=== PATIENT | male | born 1960 | race Caucasian/White ===

== ENCOUNTER → 2023-04-10 | Outpatient (CLI) | payer MEDICAID, SELFPAY ==
--- NOTE | 2023-04-10 | FLU_PTH ---
PATIENT: BULMARO HOYT LOC: [facility] U#:[id number] AGE/SX: 62/M ROOM: RE04/10/[address]: Dr. Arian Dorantes MD : 1960 BED: DIS: 04/10/2023 SPEC #: [id number] RECD: 04/10/23 13:09 STATUS: ELEN JESÚS #: [id number] ANGELIQUE: 04/10/23 00:[address]: Arian Dorantes DEPT: CYTOLOGY RECD BY: Mina Michael ENTERED: 04/10/23 13:10 SP TYPE: Fluid OTHR DR: Dr. Patricio Santana MD Tissues: A - Thyroid gland, NOS B - Thyroid gland, NOS Procedures: Special Stain Group II Surgery Specimen Level IV Cytospin Fluid HEADER OPERATION: Fine needle aspiration left enlarged cervical lymph nodes PRE-OP DIAGNOSIS: Abnormal ultrasound TISSUE SUBMITTED: A - FNA left enlarged cervical lymph nodes fluid, B - FNA left enlarged cervical lymph nodes x12 slides DIAGNOSIS CYTOLOGY A. Left enlarged cervical lymph node fluid, fine needle aspiration (cytospin and cell block): Negative for malignant cells. See comment. B. Left enlarged cervical lymph node, fine needle aspiration (smears): Negative for malignant cells. See comment. SJ:rg 04/11/2023 COMMENT A. The specimen entirely consists of blood. B. The specimen predominantly consists of lymphocytes. If there is a high suspicion of lymphoma, incisional or excisional biopsy including flow cytometry study is suggested if clinically indicated. Correlation with clinical, radiologic findings and appropriate follow up are necessary. CYTOLOGY STUDY Slides are reviewed. CYTOLOGY GROSS A - Received is 30 ml of light vigil cloudy fluid labeled with the patient's name and and designated per the requisition as left enlarged cervical lymph nodes. Submitted for cytology preparation including cell block. B - Received are 12 smears labeled with the patient's name and designated per the requisition as left enlarged cervical lymph nodes. Submitted for staining. / [email or web address] 04/10/2023 TC:5 CPT: 06953 x2, [id number]
== END | disposition home or self-care (01) ==
PROVIDERS: PCP Internal Medicine; Visit Provider Surgery
DX: R93.89 Abnormal findings on diagnostic imaging of other specified body structures (principal)
CPT/HCPCS: 88108; 88305; 88313

== ENCOUNTER 2023-07-18 10:47 | Emergency (ER) | payer MEDICAID, SELFPAY ==
[2023-07-18 10:48] VITALS: BP 122/94; PULSE 101; RESP 16; TEMP 36.2; O2SAT 100; BMI 27.8
--- NOTE | 2023-07-18 11:05 | CT_ITS ---
STUDY: CT ABDOMEN AND PELVIS WITH CONTRAST REASON FOR EXAM: Male, 62 years old. Abd pain. Constipation since July 13, 2023. History of T-cell lymphoma. RADIATION DOSAGE (If Supplied By Facility): CTDIvol = ( 14.12 ) mGy, DLP = ( 1083.89 ) mGycm TECHNIQUE: Transaxial images were obtained from the dome of the diaphragm to the symphysis pubis with oral contrast. Oral and amp; IV Gastrografin and amp; 100mL Isovue-300 was administered. Sagittal and coronal images were reconstructed. Individualized dose optimization techniques were used for this CT. COMPARISON: Comparison is made with prior study dated September 15, 2013. FINDINGS: Stable increased markings at the lung bases with areas of confluence suggestive of either scarring and/or bibasilar atelectasis. The visualized portions of the heart are within normal limits. There is decreased attenuation of the liver consistent with steatosis. Normal gallbladder and extrahepatic biliary system. Normal spleen. Normal pancreas. Normal bilateral adrenal glands. Normal right kidney. Normal left kidney. Normal visualized stomach. Normal small intestine. There are scattered colonic diverticula consistent with diverticulosis. Large amount of fecal material is seen in the right hemicolon. The appendix is visualized and appears normal. Normal abdominal aorta. Normal inferior vena cava. There is borderline retroperitoneal lymphadenopathy with enlarged nodes no greater than 10mm in the short axis diameter. Diffuse urinary bladder wall thickening. There is a 3.3 cm x 4.9 cm cystic-like structure along the right side of the urinary bladder along the right pelvic sidewall. This may represent either a bladder diverticulum or possible lymphocele. This was not seen on prior study. The side Small bilateral inguinal hernias containing fat. Small umbilical hernia containing fat. There are mild degenerative changes of the visualized lumbar spine. CT/Abdomen/Pelvis WITH Contrast IMPRESSION: Stable increased markings at the lung bases. Large amount of fecal material is seen in the right hemicolon. Diffuse fatty infiltration of the liver. Small bilateral inguinal hernias containing fat. Diffuse bladder wall thickening. Cystic structure in the right hemipelvis which may represent either a right-sided bladder diverticulum or small lymphocele. Electronically Signed: Zac Garcia MD at 13:34 EDT ,
--- NOTE | 2023-07-18 11:06 | EX.ED.DYSGE1 ---
HPI History of Present Illness Chief Complaint: Constipation Detail of Chief Complaint: Abdominal distention, constipation Informant: patient Narrative Narrative: Patient present secondary to abdominal distention and constipation. Patient was admitted to [facility] recently after starting chemotherapy and developing a fever. He states he was having diarrhea and he was diagnosed with colitis. He was discharged on July 13. He states since discharge she has not had a bowel movement and is not passing gas. He feels that he is getting abdominal distention. [facility] Medical History (Updated 07/18/23 @ 14:[address] Erna Horn MD) Hypertension T-cell lymphoma Home Medications hydrocodone-acetaminophen 5-325mg 5mg-325mg 1 - 2 tab PO Q4H PRN PRN Pain ##20 09/15/13 [Rx Last Taken Unknown] naproxen 500 mg tablet 500 mg PO BID PRN PRN Pain #20 tabs 09/15/13 [Rx Last Taken Unknown] orphenadrine citrate 100 mg tablet,extended release 100 mg PO BID ##14 09/15/13 [Rx Last Taken Unknown] magnesium citrate 300 ml PO X1 #1 BOTTLE 07/18/23 [Rx Last Taken Unknown] Allergy/AdvReac Type Severity Reaction Status Date / Time Penicillins Allergy Hives Verified 07/18/23 10:50 Social History Smoking Status: Former smoker ROS ROS ED Constitutional Constitutional ED: Denies chills or fever(s) Eyes Eyes: Denies change in vision or discharge from eye(s) ENT ENT ED: Denies discharge from eye(s), rhinorrhea or sore throat Cardiovascular Cardiovascular: Denies chest pain or palpitations Respiratory/Chest Respiratory/Chest: Denies cough or dyspnea Gastrointestinal Gastrointestinal: Reports abdominal pain and constipation; Denies diarrhea, nausea or vomiting Genitourinary Genitourinary ED: Denies dysuria Musculoskeletal Musculoskeletal: Denies back pain or extremity pain Integumentary Denies Abrasions or rash Neurologic Neurologic: Denies headache(s) or weakness Psychiatric Psychiatric: Denies anxiety or depression Allergic/Immunologic Allergic/Immunologic ED: Denies lip swelling or urticaria EXAM Physical Exam Const Vital Signs: 07/18/23 10:48 07/18/23 13:15 Temperature 97.2 F L Temperature Source Temporal Pulse Rate 101 H 79 Respiratory Rate 16 14 Blood Pressure 122/94 H 138/106 H Blood Pressure Mean 103 116 Pulse Ox 100 100 Oxygen Delivery Method Room Air Room Air Positive well nourished and well developed General Appearance ED: well developed HEENT Reports normocephalic and head/scalp atraumatic Eyes PERRL and EOMs intact bilaterally Neck supple Chest Wall inspection of chest normal and palpation of chest normal Resp normal respiratory effort and clear to auscultation bilaterally Cardio regular rate and regular rhythm GI GI Narrative: Soft but distended. No bowel sounds heard on auscultation. Palpation: soft Extremity normal to inspection Neuro oriented x3 and no sensory deficits noted Sensorium / Orientation: alert Motor Exam: strength 5/5 throughout Psych mental status grossly normal Skin no rashes or lesions noted MDM MDM MDM Narrative Medical decision making narrative: IV fluids initiated. Patient given a small dose of fentanyl and Zofran for pain and nausea. Labwork obtained to evaluate for leukocytosis, anemia, and electrolyte derangement. CT scan of the abdomen and pelvis obtained to evaluate for colitis or possible bowel obstruction. Lab Data Attestation: I reviewed the patient's lab results. Labs: Laboratory Results - last 24 hr 07/18/23 11:15 WBC 6.1 RBC 3.81 L Hgb 10.2 L Hct 31.0 L MCV 81.4 MCH 26.8 L MCHC 32.9 RDW Std Deviation 43.7 RDW Coeff of Remigio 16.5 H Plt Count 425 MPV 8.6 Neut % (Auto) Not Reportable Absolute Neuts (auto) 3.6 Absolute Lymphs (auto) 1.89 Total Counted 100 Neutrophils % (Manual) 58 Band Neutrophils % 1 Lymphocytes % (Manual) 31 Monocytes % (Manual) 2 Metamyelocytes % 2 H Myelocytes % 6 H Diff Path Review May foll Platelet Estimate ADEQUATE RBC Morphology NORM C+C Sodium 134 L Potassium 3.3 L Chloride 102 Carbon Dioxide 24.0 Anion Gap 8 BUN 6 L Creatinine 0.82 Estim Creat Clear Calc 108.27 Est GFR (MDRD) Af Amer 123 Est GFR (MDRD) Non-Af 101 BUN/Creatinine Ratio 7.3 L Glucose 145 H Calcium 9.5 Total Bilirubin 0.80 Direct Bilirubin 0.43 H AST 23 ALT 54 Alkaline Phosphatase 77 Total Protein 6.3 L Albumin 3.0 L Globulin 3.3 Lipase 13 Radiography Diagnostic Testing: Clinical Impression(s) from Imaging Studies Abdomen/Pelvis CT 07/18/23 11:05 IMPRESSION: Stable increased markings at the lung bases. Large amount of fecal material is seen in the right hemicolon. Diffuse fatty infiltration of the liver. Small bilateral inguinal hernias containing fat. Diffuse bladder wall thickening. Cystic structure in the right hemipelvis which may represent either a right-sided bladder diverticulum or small lymphocele. Electronically Signed: Zac Garcia MD at 13:34 EDT , Treatment and Re-Evaluation :: CBC was normal white count at 6.1 with a hemoglobin of 10.2. Differential reveals 2 metamyelocytes and 6 myelocytes. Chemistry studies reveal slightly low potassium at 3.3. Sodium is 134. Renal function is normal. LFTs are unremarkable. CT scan with p.o. and IV contrast reveals large amount of fecal material in the right hemicolon. Diffuse bladder wall thickening noted. Cystic structure in the right hemipelvis which may represent a right-sided bladder diverticulum or small lymphocele. Repeat evaluation patient resting comfortably. I advised him that there is no evidence of bowel obstruction, but he does have constipation primarily in the ascending colon. He was recently hospitalized with colitis across the transverse colon. Seems to be improved at this time. I did speak with Dr. Jimenez, his oncologist. We will give the patient a bottle of magnesium citrate and he will follow-up closely with Dr. Jimenez. Return instructions are given. Discharge Plan Triage Chief Complaint: Constipation ED Provider: Erna Horn Dx/Rx/DC Orders Clinical Impression: Constipation Instructions: ED Constipation (Adult) Prescriptions: New magnesium citrate Solution 300 ml PO X1 Qty: 1 0RF No Action hydrocodone-acetaminophen 1 TABLET tablet 1 - 2 tab PO Q4H PRN PRN (Reason: Pain) Qty: 20 0RF naproxen 500 MG tablet 500 mg PO BID PRN PRN (Reason: Pain) Qty: 20 0RF orphenadrine citrate 100 MG tablet 100 mg PO BID Qty: 14 0RF Primary Care Provider: Patricio Santana Referrals: Masci,Chacho, DO [Med Staff - Active Staff] - 3-5 Days if not improving Patricio Santana MD [Primary Care Provider] - Disposition Disposition: Home, Self Care
[2023-07-18 11:28] LABS: Hemoglobin 10.2 g/dL (13.0-16.5); Mean Corp Hgb Conc 32.9 g/dL (32-36); Mean Corpuscular Hgb 26.8 pg (27.0-32.0); Mean Corpuscular Volume 81.4 fL (80-94); Mean Platelet Vol. 8.6 fl (6.2-12.0); POSITIVE COUNT YES; POSITIVE MORPHOLOGY YES; Platelet Count 425 K/mm3 (150-450); RBC Distribution Width CV 16.5 % (11.6-14.6); RBC Distribution Width SD 43.7 fl (35.1-43.9); Red Blood Count 3.81 M/mm3 (4.6-6.2); White Blood Count 6.1 K/mm3 (4.4-11.0)
[2023-07-18 11:38] LABS: Differential Indicated MANUAL DIFF
[2023-07-18] MEDS: Ondansetron 4 MG/2 ML Vial IV (11:38)
[2023-07-18] MEDS: 0.9% Normal Saline (1000mL) 1,000 ML 150 ML IV (11:38)
[2023-07-18] MEDS: fentaNYL 100 MCG/2 ML Ampul 25 MCG IV (11:39)
[2023-07-18 11:41] LABS: AST(SGOT) 23 U/L (15-37); Alanine Aminotransfer ALT/SGPT 54 U/L (16-61); Alkaline Phosphatase 77 U/L (45-117); Anion Gap 8 (5-15); BUN 6 mg/dL (7-18); BUN/Creat Ratio 7.3 RATIO (10-20); Bilirubin, Direct 0.43 mg/dL (0.00-0.30); Calcium,Total 9.5 mg/dL (8.5-10.1); Chloride 102 mmol/L (98-107); Creatinine, Serum 0.82 mg/dL (0.70-1.30); EST Glomerular Filtration Rate 101 mL/min (>60); Est Glom Filt Rate - Afr Amer 123 mL/min (>60); Estimated Creatinine Clearance 108.27 ml/min; Globulin 3.3 g/dL (2.2-4.2); Glucose 145 mg/dL (74-106); Lipase 13 U/L (13-75); Potassium 3.3 mmol/L (3.5-5.1); Protein, Total 6.3 g/dL (6.4-8.2); Sodium Level 134 mmol/L (136-145)
[2023-07-18 12:00] LABS: Lymphocyte 31 % (19-41); Metamyelocyte 2 % (0-1); Monocyte 2 % (0-10); Myelocyte 6 % (0-0); Neutrophil-Band 1 % (0-5); Neutrophil-Segmented 58 % (47-70); Platelet Estimate ADEQUATE (ADEQ); Red Cell Morphology NORM C+C NORMAL (NORM C&C); Total Cells Counted 100 (MANUAL DIFF)
[2023-07-18 12:01] LABS: Absolute Lymphocyte Count 1.89 X10^3/uL (0.83-4.51); Absolute Neutrophil Count 3.6 X10^3/uL (2.0-7.7)
[2023-07-18 13:15] VITALS: BP 138/106; PULSE 79; RESP 14; O2SAT 100
[2023-07-19 10:43] LABS: Pathologist Review Reviewed
== END 2023-07-18 14:21 | disposition home or self-care (01) ==
PROVIDERS: Emergency Provider Emergency Medicine; PCP Internal Medicine; Visit Provider Emergency Medicine
DX: K59.00 Constipation, unspecified (principal); R14.0 Abdominal distension (gaseous); Z87.891 Personal history of nicotine dependence
CPT/HCPCS: 36591; 74177; 80048; 80076; 83690; 85025; 96361; 96374; 96375; 99283; J7030; Q9967; A4216; J2405